=== PATIENT | female | born 1995 | race African-American/Black ===

== ENCOUNTER 2022-05-14 08:19 | Day surgery (SDC) | payer OTHER ==
[2022-05-12 14:23] VITALS: BMI 35.5
[2022-05-14] MEDS ORDERED: BUPIVACAINE HCL/PF 2.5 MG/ML - 30 ML VIAL IJ ONE (09:42)
[2022-05-14] MEDS ORDERED: SCOPOLAMINE HYDROBROMIDE 1 PATCH PATCH.TD72 ONE (10:16)
[2022-05-14] MEDS ORDERED: DEXAMETHASONE SOD PHOSPHATE 4 MG/1 ML VIAL ONE ×2 (10:16→10:35)
[2022-05-14] MEDS ORDERED: ONDANSETRON 4 MG/2 ML VIAL ONE ×2 (10:16→10:35)
[2022-05-14] MEDS ORDERED: MIDAZOLAM HCL 2 MG/2 ML SINGLE DOSE VIAL ONE (10:16)
[2022-05-14] MEDS ORDERED: FENTANYL CITRATE/PF 50 MCG/ML VIAL ONE (10:17)
[2022-05-14] MEDS ORDERED: PROPOFOL 60 ML ONE (10:21)
[2022-05-14] MEDS ORDERED: ceFAZolin SODIUM 1 GM VIAL ONE (10:23)
[2022-05-14] MEDS ORDERED: KETOROLAC TROMETHAMINE 30 MG/1 ML VIAL ONE (10:35)
[2022-05-14] MEDS ORDERED: PROPOFOL 20 ML ONE ×2 (10:46→10:56)
[2022-05-14] MEDS ORDERED: ONDANSETRON 4 MG/2 ML VIAL IVPUSH PRN (11:17)
[2022-05-14] MEDS ORDERED: ACETAMINOPHEN 1000 MG/100 ML BAG IVPB ONE (11:17)
[2022-05-14] MEDS ORDERED: LACTATED RINGERS SOLUTION 1,000 ML IV SCH (11:30)
[2022-05-14] MEDS ORDERED: oxyCODONE HCL 5 MG TABLET ONE ×2 (11:50→13:25)
[2022-05-14] MEDS: oxyCODONE HCL 5 MG TABLET PO PRN ×2 (12:00→13:30)
[2022-05-14] MEDS ORDERED: oxyCODONE HCL 5 MG TABLET PO PRN (12:29)
[2022-05-14 13:00] VITALS: RESP 20; TEMP 97.8
[2022-05-14 14:41] VITALS: BP 115/60; PULSE 75
== END 2022-05-14 14:00 | disposition home or self-care (01) ==
LOC: FASU 08:19
PROVIDERS: ATTEND Orthopaedic Surgery
PROC: 0SBD4ZZ Excision of Left Knee Joint, Percutaneous Endoscopic Approach (ICD-10-PCS; 2022-05-14)
PROC: 0SBD4ZZ Excision of Left Knee Joint, Percutaneous Endoscopic Approach (ICD-10-PCS; principal; 2022-05-14 10:41)
DX: S83.242A Other tear of medial meniscus, current injury, left knee, initial encounter (principal); S83.282A Other tear of lateral meniscus, current injury, left knee, initial encounter; S83.8X2A Sprain of other specified parts of left knee, initial encounter; M65.862 Other synovitis and tenosynovitis, left lower leg; X58.XXXA Exposure to other specified factors, initial encounter; Y93.9 Activity, unspecified; Y92.9 Unspecified place or not applicable
CPT/HCPCS: 84703; 94760